=== PATIENT | male | born 1970 | race Caucasian/White ===

== ENCOUNTER 2018-01-29 06:03 | Day surgery (SDC) | payer OTHER ==
[2018-01-29] VITALS (11 sets, daily range): BP systolic 118–136; BP diastolic 73–87
[~2018-01-29] VITALS: Ht 180.3 cm; Wt 88.5 kg
[~2018-01-29 06:03] MED LIST: NKM; ceFAZolin 1gm in D5W 55ml IVP ONE; celeBREX 200mg Cap **SURGERY PATIENTS ONLY ORAL ONE; oxyCONTIN 20mg tab ORAL ONE
--- NOTE | 2018-01-29 07:14 | Pre-Procedure Note/Attestation ---
Pre-Procedure Note/Attestation Complete Prior to Procedure Planned Procedure: left Procedure Narrative: knee arthroscopy medial menisectomy Indications for Procedure Pre-Operative Diagnosis: left knee medial meniscus tear Attestation I attest that I discussed the nature of the procedure; its benefits; risks and complications; and alternatives (and the risks and benefits of such alternatives ), prior to the procedure, with the patient (or the patient's legal environmental marketing representative). I attest that, if there was a reasonable possibility of needing a blood transfusion, the patient (or the patient's legal environmental marketing representative) was given the [facility] standardized written summary, pursuant to the [place] Blood Safety Act ([place] Health and Safety Code # 1645, as amended). I attest that I re-evaluated the patient just prior to the surgery and that there has been no change in the patient's H&P, except as documented below: Gt Orona MD Jan 29, 2018 07:14
--- NOTE | 2018-01-29 07:14 | Operative Note - PDOC ---
Operative Note Operative Note Pre-op Diagnosis: left knee medial meniscus tear Procedure: see op report Post-op Diagnosis: same as pre-op plus Operative Findings: consistent w/pre-op dx studies Anesthesia: regional Specimen: none Complications: none Condition: stable Estimated Blood Loss: none Implant(s) used?: No Gt Orona MD Jan 29, 2018 07:14
[2018-01-29] MEDS ORDERED: fentaNYL 100 mcg/2 mL IV ONE (08:34)
[2018-01-29] MEDS ORDERED: Midazolam 2mg/2ml Inj ONE (08:34)
[2018-01-29] MEDS ORDERED: Ketorolac 30mg Inj ONE ×2 (08:35→09:06)
[2018-01-29] MEDS ORDERED: Propofol 200mg/20ml IV ONE (08:35)
[2018-01-29] MEDS ORDERED: Lidocaine 1% MPF 10mg/ml 5ml ONE (08:35)
[2018-01-29] MEDS ORDERED: Morphine Sulfate PF 10 ML ONE (09:05)
[2018-01-29] MEDS ORDERED: EPINEPHrine 1mg/1ml Amp ONE (09:05)
[2018-01-29] MEDS ORDERED: Kenalog-40 1ml Vial ONE ×2 (09:06→09:08)
[2018-01-29] MEDS ORDERED: Bupivacaine 0.25% Inj 30ml INJ ONE ×2 (09:07→09:08)
[2018-01-29] MEDS ORDERED: Lidocaine 1% 10mg/ml/Epi 0.005mg/ml 30ml vial INJ ONE (09:07)
--- NOTE | 2018-01-29 09:16 | Anethesia Preoperative Eval ---
Anesthesia Pre-op PMH/ROS General Date of Evaluation: Jan 29, 2018 Time of Evaluation: 09:12 Anesthesiologist: Mj ASA Score: ASA 2 Mallampati Score Class I : Soft palate, uvula, fauces, pillars visible Class II: Soft palate, uvula, fauces visible Class III: Soft palate, base of uvula visible Class IV: Only hard plate visible Mallampati Classification: Class II Surgeon: Yeyo Diagnosis: L knee pain Surgical Procedure: L knee scope Anesthesia History: none Family History: no anesthesia problems Allergies: Coded Allergies: No Known Allergies (Unverified , 01/29/18) Medications: see eMAR Past Medical History Cardiovascular: Denies: HTN, CAD, ND, valve dz, arrhythmia, other Pulmonary: Denies: asthma, COPD, JONAH, other Gastrointestinal/Genitourinary: Reports: GERD - mild; Denies: CRI, ESRD, other Neurologic/Psychiatric: Denies: dementia, CVA, depression/anxiety, TIA, other Endocrine: Denies: DM, hypothyroidism, steroids, other HEENT: Denies: cataract (L), cataract (R), glaucoma, TANANA (L), TANANA (R), other Hematology/Immune: Denies: anemia, DVT, bleeding disorder, other Musculoskeletal/Integumentary: Denies: OA, RA, DJD, DDD, edema, other PMH Narrative: as above PSxH Narrative: Bilateral knee scopes Anesthesia Pre-op Phys. Exam Physician Exam Last Vital Signs Date Time Temp Pulse Resp B/P (MAP) Pulse Ox O2 Delivery O2 Flow Rate FiO2 01/29/18 06:52 97.7 53 18 118/82 (94) 98 97.7 01/29/18 06:48 Room Air Constitutional: NAD Neurologic: CN 2-12 intact Cardiovascular: no M/R/G Respiratory: CTA Gastrointestinal: S/NT/ND Airway Exam Mallampati Score: Class II MO: full Neck: flexible ROM: full Teeth: intact Dentures: no upper, no lower Anesthesia Pre-op A/P Labs see chart Studies Pre-op Studies: EKG - NSR Risk Assessment & Plan Assessment: ASA 2 Plan: GA with LMA Status Change Before Surgery: No Pre-Antibiotics Drug: Ancef 1gr. Given Within 1 Hr of Incision: Yes Time Given: 09:52 Beto Barker MD Jan 29, 2018 09:16
[2018-01-29] MEDS ORDERED: Sterile Water Irrig 1000ml IRRIG ONE (10:00)
[2018-01-29] MEDS ORDERED: LR 1000ml ONE (10:00)
[2018-01-29] MEDS ORDERED: NS Irrig 4000ml IRRIG ONE (10:00)
[2018-01-29] MEDS ORDERED: fentaNYL 100 mcg/2 mL IV PRN (10:49)
[2018-01-29] MEDS ORDERED: LR 1000ml 1,000 ML IVLG SCH (10:50)
[2018-01-29] MEDS ORDERED: DiphenhydrAMINE 50mg/ml Inj IVP PRN (10:50)
[2018-01-29] MEDS ORDERED: Ketorolac 30mg Inj IV PRN (10:50)
[2018-01-29] MEDS ORDERED: Meperidine 50mg/ml Inj(FOR RIGORS ONLY) IV PRN (10:50)
[2018-01-29] MEDS ORDERED: Metoclopramide 10mg/2ml Inj IVP PRN (10:50)
--- NOTE | 2018-01-29 11:00 | Immediate Post-Op Evaluation ---
Immediate Post-Op Evalulation Immediate Post-Op Evalulation Procedure: L knee scope meniscectomy Date of Evaluation: Jan 29, 2018 Time of Evaluation: 10:59 IV Fluids: 800 Blood Products: none Estimated Blood Loss: min Urinary Output: none Blood Pressure Systolic: 123 Blood Pressure Diastolic: 71 Pulse Rate: 62 Respiratory Rate: 20 O2 Sat by Pulse Oximetry: 99 Temperature (Fahrenheit): 98.5 Pain Score (1-10): 1 Nausea: No Vomiting: No Complications none Patient Status: awake, patent, none Hydration Status: adequate Beto Barker MD Jan 29, 2018 11:00
--- NOTE | 2018-01-29 14:08 | 48 Hour Post Anesthesia Eval ---
Post Anesthesia Evaluation Procedure: L knee scope meniscectomy Date of Evaluation: Jan 29, 2018 Time of Evaluation: 14:06 Blood Pressure Systolic: 128 0: 76 Pulse Rate: 64 Respiratory Rate: 20 Temperature (Fahrenheit): 97.6 O2 Sat by Pulse Oximetry: 98 Airway: patent Nausea: No Vomiting: No Pain Intensity: 1 Hydration Status: adequate Cardiopulmonary Status: stable Mental Status/LOC: patient returned to baseline Follow-up Care/Observations: n/a Post-Anesthesia Complications: none Follow-up care needed: ready to discharge Beto Barker MD Jan 29, 2018 14:08
[2018-01-29] MEDS ORDERED: Norco 5mg/325mg tab ORAL PRN (14:24)
[2018-01-29] MEDS ORDERED: HYDROmorphone 1mg/ml Carpuject SUBQ PRN (14:24)
[2018-01-29] MEDS ORDERED: D5 1/2NS 1,000 ML IV SCH (14:25)
[2018-01-29] MEDS ORDERED: Tylenol #3 tab (300mg/30mg) ORAL PRN (14:25)
--- NOTE | 2018-01-29 18:31 | Operative Note - Dictated ---
DATE OF OPERATION: 01/29/2018 POSTOPERATIVE DIAGNOSIS: Left knee internal derangement. POSTOPERATIVE DIAGNOSES: 1. Left knee medial meniscectomy. 2. Left knee hypertrophic fat pad/synovial tissue in the medial, lateral, and patellofemoral compartment. PROCEDURE: 1. Left knee diagnostic arthroscopy. 2. Left knee synovectomy, medial, lateral, and patellofemoral compartments. SURGEON: Gt Orona M.D. ANESTHESIA: MAC with local. INDICATION OF PROCEDURE: The patient is a pleasant gentleman with progressive left knee pain. He had MRI, which showed possible recurrent tear of the posterior horn of the medial meniscus. He had continued anterior knee pain. He failed conservative treatment. He elected to undergo left knee diagnostic arthroscopy and possible revision meniscectomy. Risks, limitations, expectations, and complications of procedure were discussed in detail. All questions were addressed. DESCRIPTION OF PROCEDURE: After informed consent was obtained, the patient was brought to operating room and placed supine under monitored anesthesia control. Tourniquet was applied on the left proximal thigh. Left leg was prepped and draped in a sterile manner. Time-out was performed. Inferolateral stab incision was then made. A trocar was introduced into the knee joint. There was significant hypertrophic fat pad. In the retropatellar space area making visualization of the patellofemoral compartment very difficult. Of note, as the trocar was placed through the anterolateral portal, there was some difficulty with placing through the lateral gutter. The medial compartment was entered and medial portal was established using spinal needle. The posterior horn of the medial meniscus was probed and noted to be intact. There is no significant chondral damage in the medial condyle or tibial plateau. The intercondylar notch was entered. The ACL was probed and was stable. Lateral compartment was entered, free of meniscal damage. It was taken through range of motion. No chondral damage. Camera was placed in the medial compartment. Synovectomy of the fat PAD and anterior portion of the lateral compartment was performed. Once that was done, the camera was repositioned in the patellofemoral compartment. The excision of the retropatellar fat pad was completed. Once that was done, the instruments were removed. Portal sites were closed using Monocryl sutures. Steri-Strips and a sterile dressing were applied. The patient was awoken and taken to recovery room with stable Vital Signs. ESTIMATED BLOOD LOSS: None. COMPLICATIONS: None. SPECIMENS: None. IMPLANTS: None. Gt Orona M.D. DR: BERNARDINO JOB#: [id number] CC:
== END 2018-01-29 12:40 | disposition home or self-care (01) ==
LOC: SUR 06:03
DX: M23.92 Unspecified internal derangement of left knee (principal); M79.4 Hypertrophy of (infrapatellar) fat pad; M25.50 Pain in unspecified joint; R35.1 Nocturia; K21.9 Gastro-esophageal reflux disease without esophagitis
CPT/HCPCS: 29876; J0171; J0690; J1885; J2250; J2274; J2405; J2704; J3010; J3301; J3490; J7120; 94003; 94150